=== PATIENT | female | born 1990 | race Caucasian/White ===

== ENCOUNTER 2019-05-17 09:53 | Day surgery (SDC) ==
[2019-05-17] MEDS ORDERED: DILAUDID IV ONE ×2 (10:15→11:28)
[2019-05-17] MEDS ORDERED: ZOFRAN IV ONE (10:15)
[2019-05-17 11:24] LABS: BASO# 0.08 X1000 (0.0-0.2); BASO% 0.5 % (0.0-0.8); EOS# 0.17 X1000 (0.0-0.7); EOS% 1.1 % (0.0-10.0); HEMATOCRIT 40.1 % (37.0-47.0); HEMOGLOBIN 12.9 g/dL (12.0-16.0); IMM GRAN% 0.6 % (0.0-0.5); LYMPH# 2.56 X1000 (1.2-3.4); LYMPH% 16.5 % (20.5-51.1); MCH 29.1 PG (27-31); MCHC 32.2 g/dL (33-37); MCV 90.5 FL (81-99); MONO# 1.05 X1000 (0.11-0.59); MONO% 6.8 % (1.7-9.3); MPV 10.6 FL (7.4-10.4); NEUT# 11.53 X1000 (1.4-6.5); NEUT% 74.5 % (42.2-75.2); PLT 435 X1000 (130-400); RBC 4.43 XMIL (4.2-5.4); RDW 14.6 % (11.5-14.5); WBC 15.49 X1000 (4.8-10.8)
[2019-05-17] MEDS ORDERED: NS 1,000 ML IV ONE ×2 (11:28→13:12)
[2019-05-17 11:36] LABS: AGAP 16; ALB/GLOB RATIO 1.1; ALBUMIN 4.2 g/dL (3.5-5.0); ALKALINE PHOSPHATASE 139 U/L (32-104); AMYLASE 74 U/L (20-200); BUN 17 mg/dL (8-22); CHLORIDE 96 mmol/L (98-107); COSMO 280; CREATININE 0.9 mg/dL (0.5-0.9); ESTIMATED GFR > 60; GLUCOSE 108 mg/dL (70-104); GOT 199 U/L (10-30); GPT 92 U/L (10-36); LIPASE 26 U/L (13-60); POTASSIUM 3.9 mmol/L (3.5-5.1); SODIUM 139 mmol/L (136-145); TCO2 27 mmol/L (25-35); TOTAL PROTEIN 7.9 g/dL (6.3-8.3)
--- NOTE | 2019-05-17 11:50 | Diag Imaging Result Doc PS360 ---
US GB < RUQ (LIMITED) - 05/17/2019 INDICATION: ruq pain TECHNIQUE: COMPARISON: CT from 04/09/2019 FINDINGS: There are several small shadowing gallstones in the gallbladder. The gallbladder is rather collapsed. By report, the patient has been nothing by mouth since yesterday morning. In this case, this likely represents chronic cholecystitis. No biliary dilation. Common bile duct measures 3 mm. The liver, pancreas, and right kidney are normal. Aorta, IVC, and main portal vein are patent. IMPRESSION: Small gallstones in the gallbladder. Probable chronic cholecystitis. No biliary obstruction. Electronically signed by Mike Cool 05/17/2019 11:47 AM
[2019-05-17] MEDS ORDERED: ZOFRAN IV PRN ×2 (13:12→13:19)
[2019-05-17] MEDS: ZOSYN 3.375 GM in NS 50 ML IV SCH ×2 (13:18→19:41)
[2019-05-17] MEDS ORDERED: DILAUDID IM PRN (13:19)
[2019-05-17] MEDS: MORPHINE IV PRN ×3 (13:38→21:18)
--- NOTE | 2019-05-17 19:11 | HISTORY AND PHYSICAL ---
ADMITTING DIAGNOSIS: Cholecystitis. HISTORY OF PRESENT ILLNESS: A 28-year-old female presenting with right upper quadrant epigastric pain. She was seen in the emergency department and found to have an ultrasound that suggested cholecystitis. She has been admitted and started on antibiotics and admitted to the floor. She did have a leukocytosis in the emergency department. PAST MEDICAL HISTORY: None reported. PAST SURGICAL HISTORY: None. ALLERGIES: None. HOME MEDICATIONS: Reviewed. SOCIAL HISTORY: Current smoker. FAMILY HISTORY: Reviewed with patient, noncontributory. REVIEW OF SYSTEMS: Full 14 systems reviewed and negative as specified in HPI. PHYSICAL EXAMINATION: VITAL SIGNS: Patient is currently afebrile. Her vital signs are stable. GENERAL: No acute distress. HEENT: Normocephalic, atraumatic. Pupils equal, round, reactive to light. Mucous membranes moist. Oropharynx benign. NECK: Supple. Trachea midline. CARDIOVASCULAR: Regular rate and rhythm. LUNGS: Grossly clear. ABDOMEN: Soft, tender to palpation in the right upper quadrant. EXTREMITIES: Moves all extremities. NEUROLOGIC: Grossly intact. SKIN: No signs of jaundice. VASCULAR: All extremities perfused. LABORATORY DATA: White blood count 15, hematocrit 40, and platelet count 435,000. Remainder of labs reviewed. Of note, her AST, ALT, and alkaline phosphatase were all slightly elevated, although her bilirubin is normal. Lipase and amylase are normal. IMAGING: As noted above with an ultrasound. ASSESSMENT AND PLAN: A 28-year-old female with likely cholecystitis. 1. Cholecystitis. At this time we will plan on surgical intervention tomorrow. Discussed with her the risks, benefits, and alternatives of procedure. Risks including but not limited to bleeding, infection, risk of anesthesia risk of common bile duct injury, bile leak, risk of injuring other organs discussed. All questions answered. The patient voiced understanding and wishes to proceed. cc: Jamie Willis MD
[2019-05-18] MEDS: ZOSYN 3.375 GM in NS 50 ML IV SCH ×3 (01:17→13:08)
[2019-05-18] MEDS: MORPHINE IV PRN ×2 (08:27→11:23)
--- NOTE | 2019-05-18 09:04 | GENERAL SURGERY PROGRESS NOTE ---
DATE: 05/18/2019 SUBJECTIVE: Patient seems to be doing okay. She has no questions about the procedure today. OBJECTIVE: Vital Signs: Patient is currently afebrile. Her vital signs stable. General: No acute distress. HEENT: Normocephalic, atraumatic. Pupils equal, round, reactive to light. Mucous membranes moist. Oropharynx benign. Neck: Supple. Trachea midline. Cardiovascular: Regular rate and rhythm. Lungs: Grossly clear. Abdomen: Soft. Still somewhat tender in right upper quadrant epigastric. No peritoneal signs. Extremities: Moves all extremities. Neurologic: Grossly intact. Skin: No signs of jaundice. Vascular: All extremities perfused. LABORATORY: None this morning. ASSESSMENT AND PLAN: A 28-year-old female with likely chronic cholecystitis. Chronic versus acute cholecystitis: At this time, we will plan on surgical intervention. I discussed with her and documented yesterday the risks, benefits, and alternatives of the procedure. We will plan on the procedure today. cc: Jamie Willis MD
[2019-05-18] MEDS ORDERED: VERSED ONE ×3 (12:23→12:57)
[2019-05-18] MEDS ORDERED: FENTANYL ONE ×2 (12:23→12:57)
[2019-05-18] MEDS ORDERED: DIPRIVAN 1% ONE (12:23)
[2019-05-18] MEDS ORDERED: BENADRYL IV ONE ×2 (12:40→15:30)
[2019-05-18] MEDS ORDERED: BENADRYL ONE (12:43)
[2019-05-18] MEDS ORDERED: ROBINUL ONE ×2 (12:51→13:52)
[2019-05-18] MEDS ORDERED: SENSORCAINE-MPF 0.5%/EPI 1:200,000 ONE (12:54)
[2019-05-18] MEDS ORDERED: SODIUM CHLORIDE 0.9% ONE (12:54)
[2019-05-18] MEDS ORDERED: LR 1,000 ML ONE (12:55)
[2019-05-18] MEDS ORDERED: STERILE WATER INJ. ONE (13:00)
[2019-05-18] MEDS ORDERED: NORCURON ONE (13:00)
[2019-05-18] MEDS ORDERED: XYLOCAINE-MPF 2% ONE (13:00)
[2019-05-18] MEDS ORDERED: ZOFRAN ONE (13:00)
[2019-05-18] MEDS ORDERED: QUELICIN (DOSE) ONE (13:00)
[2019-05-18] MEDS ORDERED: OFIRMEV 1000 MG/ISOTONIC SOLN 1,000 MG/100 ML BOTTLE ONE (13:28)
[2019-05-18] MEDS ORDERED: NEOSTIGMINE ONE (13:54)
[2019-05-18] MEDS: DILAUDID ONE ×5 (14:11→14:35)
[2019-05-18] MEDS: PHENERGAN ONE ×4 (14:13→14:23)
--- NOTE | 2019-05-18 15:00 | OPERATIVE NOTE ---
PROCEDURE DATE: 05/18/2019 PREOPERATIVE DIAGNOSIS: Acute on chronic cholecystitis. POSTOP DIAGNOSIS: Acute on chronic cholecystitis. PROCEDURE: Laparoscopic cholecystectomy. SURGEON: Jamie Willis MD. TECHNICAL INTERN: None. ANESTHESIA: General endotracheal. OPERATIVE FINDINGS: Acute on chronic cholecystitis. COMPLICATIONS: None at time dictation. ESTIMATED BLOOD LOSS: 5 mL. SPECIMENS REMOVED: Gallbladder. BRIEF HISTORY: A 28-year-old female presenting with right upper quadrant pain felt she had cholecystitis. The risks, benefits, alternatives for the cholecystectomy were discussed and documented in chart, all questions answered. DESCRIPTION OF PROCEDURE: After informed consent was obtained patient brought to the operative theatre, transferred op placed supine position, general endotracheal anesthesia was then performed without complication. Formal time-out was then performed confirming patient, date, procedure, all in agreement. At that time attention was given the abdomen. An infraumbilical incision was made through which using Optiview technique we inserted 11 mm trocar, connected insufflation, pneumoperitoneum was achieved, under direct visualization placed 3 more trocars all 5 mm 1 subxiphoid, 2 in the right upper quadrant. Using these, the gallbladder was identified. It was somewhat thickened. We were able to retract it cephalad. We dissected out the cystic duct and cystic artery to achieve the critical view of safety. She did have an enlarged node of Calot. We were able to doubly clip and ligate the cystic duct and cystic artery then dissected gallbladder off the gallbladder fossa. We brought the gallbladder out through the infraumbilical incision in EndoCatch. We then reexamined the abdomen. There was no drainage of bile, no bleeding. The clips were in good position. We closed the infraumbilical incision with 0 Vicryl and a Neptali- Dinora device, all trocars removed, insufflation was disconnected, pneumoperitoneum was released. All skin incisions closed with 4-0 Monocryl. Patient tolerated procedure well, transferred back recovery room. She will be discharged home. cc: Jamie Willis MD
[2019-05-18] MEDS ORDERED: NORCO-10 PO PRN (15:21)
[2019-05-18 17:48] VITALS: BP 145/87
--- NOTE | 2019-05-23 19:33 | PROVIDER DOCUMENTATION ---
This chart was entered by Grei Webster Scribe, acting as scribe for Dung Graham MD. HPI-Abdominal Pain/GI Problem - General Chief Complaint: Abdominal Pain Stated Complaint: ABD PAIN/GALL STONES Time Seen by Provider: 05/17/19 10:03 Source: patient Allergies/Adverse Reactions: Patient Allergies Allergy/AdvReac Type Severity Reaction Status Date / Time No Known Allergies Allergy Verified 05/17/19 11:10 Home Medications: Home Medication List Medication Instructions Recorded Confirmed Last Taken Type Nitrofurantoin Monohyd/M-Cryst 100 mg PO BID #14 cap 04/09/19 Unknown Rx [Macrobid 100 mg Capsule] Sertraline [Zoloft] 25 mg PO DAILY 04/09/19 04/09/19 Unknown History - History of Present Illness-ABD Nature of Presenting Problems: 28yof presents to ED cc RUQ and right CVA pain, nausea and vomiting since 6am. Pt reports she was seen in ED 04/09/2019, dx with gallstones & kidney stones, referred to surgeon but hasn't been able to take off work to go. Pt denies any other symptoms. Pt is on her hands and knees on bed and crying upon exam. Abdominal Pain Onset Location: reports: RUQ Pain Radiation: reports: back (right) Quality of Pain: reports: sharp, throbbing, tightness Severity in ED: reports: moderate Onset/Duration: reports: this morning Timing: reports: still present Activities at Onset: reports: light activity Modifying Factors: improves with: nothing Associated Symptoms: reports: nausea, vomiting # of Vomiting Episodes: 4 Emesis Description: reports: clear Similar Symptoms Previously?: Yes Recently seen or treated by another doctor?: Yes (seen in ED 04/09/2019) Review of Systems - Adult - REVIEW OF SYSTEMS - ADULT Constitutional: reports: see HPI. denies: chills, fever, fatique Eyes: reports: no symptoms reported Ears, Nose, Mouth & Throat: reports: no symptoms reported Cardiovascular: reports: no symptoms reported Respiratory: reports: no symptoms reported Gastrointestinal: reports: see HPI, abdominal pain (RUQ), nausea, vomiting Genitourinary: reports: no symptoms reported Musculoskeletal: reports: see HPI, back pain (right CVA) Integumentary: reports: no symptoms reported Neurological: reports: no symptoms reported Psychiatric: reports: no symptoms reported Endocrine: reports: no symptoms reported Hematologic/Lymphatic: reports: no symptoms reported Allergic/Immunologic: reports: no symptoms reported All Other Systems: Reviewed and Negative Past History - Adult - PAST MEDICAL HISTORY-ADULT Review of Records: reports: Nursing Assessment Review, Medications Reviewed, Social history reviewed & non-contributory. Major Childhood Illnesses: reports: denies history Cardiovascular: reports: denies history Respiratory: reports: pneumonia Gastrointestinal: reports: GI bleed, ulcer Obstetrical/Gynecological: reports: denies history Genitourinary: reports: kidney stones Musculoskeletal: reports: denies history Neurological: reports: denies history Psychiatric: reports: anxiety, depression Endocrine/Immune: reports: denies history Other Conditions: reports: denies history - PRIOR SURGERIES/PROCEDURES Surgical/Procedure History: reports: other (cyst removed). denies: cholecystectomy - PRIOR HOSPITALIZATIONS Prior Hospitalizations: reports: none - IMMUNIZATION STATUS Childhood Immunizations: See Nurse Assessment Flu Vaccine: See Nurse Assessment - FAMILY HISTORY Family History: reviewed, not pertinent Physical Exam-General - PHYSICAL EXAM-ADULT Initial Vital Signs Reviewed: Yes - CONSTITUTIONAL General Appearance: alert. negative: combative - EYES Eyes: PERRL/EOMI, pink conjunctivae. negative: photophobia - HEAD, EARS, NOSE, MOUTH & THROAT HENMT: normocephalic/atraumatic, moist mucous membranes. negative: angioedema - NECK Neck: supple - RESPIRATORY Respiratory: chest non-tender, lungs clear, normal breath sounds. negative: stridor - CARDIOVASCULAR Cardiovascular: normal peripheral pulses, regular rate, rhythm. negative: bradycardia, tachycardia - GASTROINTESTINAL (ABDOMEN) Abdominal Exam: normal bowel sounds, soft, tenderness (RUQ) - MUSCULOSKELETAL Back Exam: no vertebral tenderness, CVA tenderness (right) Extremity: normal inspection. negative: deformity - SKIN Integumentary: normal color. negative: diaphoresis, jaundice - PSYCHIATRIC Psych/Mental Status: oriented x 3. negative: disheveled Progress - PLAN OF CARE/RESULTS Progress/Plan/Lab Results: Vital Signs - 8 hr 05/17/19 09:54 Temperature 98.9 F Pulse Rate 89 Respiratory Rate 20 Blood Pressure 141/85 O2 Sat by Pulse Oximetry 98 Orders Category Date Time Status ED: Urine Bedside ORDERED Care 05/17/19 10:14 Active US GB < RUQ (LIMITED) [US] Stat Exams 05/17/19 10:15 Ordered AMYLASE [CHEM] Stat Lab 05/17/19 10:14 Uncollected CBC WITH ELECTRONIC DIFF [HEME] Stat Lab 05/17/19 10:14 Uncollected COMPREHENSIVE METABOLIC PANEL [CHEM] Stat Lab 05/17/19 10:14 Uncollected LIPASE [CHEM] Stat Lab 05/17/19 10:14 Uncollected Hydromorphone [Dilaudid] Med 05/17/19 10:15 Discontinued 1 mg IV NOW ONE Ondansetron [Zofran] Med 05/17/19 10:15 Discontinued 4 mg IV NOW ONE Result Diagrams: 05/17/19 11:12 05/17/19 11:12 - ULTRASOUND (By Radiology) 1 US Study: Gallbladder Impression: See EMR Report (IMPRESSION: Small gallstones in the gallbladder. Probable chronic cholecystitis. No biliary obstruction. Electronically signed by Mike Cool 05/17/2019 11:47 AM) - CONSULTS/PCP/HOSPITALIST Notification #1 *Consult/PCP/Hospitalist*: Dr. Willis Time Discussed: 11:54 Consult Disposition: Admit Departure - Departure Date of Disposition Decision: 05/17/19 Time of Disposition Decision: 11:52 DIAGNOSIS: Cholelithiasis with cholecystitis Qualifiers: Cholelithiasis location: gallbladder Cholecystitis acuity: unspecified acuity Biliary obstruction: without biliary obstruction Qualified Code(s): K80.10 - Calculus of gallbladder with chronic cholecystitis without obstruction DIAGNOSIS: (Ruled Out): Cholecystitis Disposition: ADMITTED INPATIENT 09 Certified Medical Emergency: Emergent Condition: Stable Additional Instructions: ED Follow Up Instructions: You have been treated by a care provider in the Emergency Department. These instructions are being provided to you so you can have an understanding of how to care for yourself upon discharge. Upon discharge from the Emergency Department, you are responsible for making arrangements for follow-up care by a physician of your choice. Take all prescribed medications as directed. Return to the Emergency Department immediately for any new or worsening symptoms. You may call the Physician Referral phone number at [phone] to obtain a list of Physicians who are taking new patients. Referrals and Follow-Ups: Oneil Manley MD [Primary Care Provider] - - Critical Care Note This patient required my direct & personal management of CC.: No Attestation - Physician/ GENOVEVA Attestation Patient care was provided by Advanced Practice Provider:: No The physician spent face to face time with patient:: Yes Advanced Practice Provider documentation review:: Supervising physician onsite and consulted in the evaluation and care of this patient. The physician did have a face to face encounter with the patient. This chart was documented by the indicated scribe, (Geri Webster, Carlos) and accurately reflects the services I performed and decisions made by me, Dung Graham MD, as attested by the provider's signature.
== END 2019-05-18 18:01 | disposition home or self-care (01) ==
LOC: ED 09:53 → OPS 09:54 → 4N 09:54 → OPS 05-18 18:01
PROVIDERS: ATTEND Surgery